=== PATIENT | male | born 1995 | race Caucasian/White ===

== ENCOUNTER 2022-11-19 21:13 | Outpatient (CLI) | payer MEDICAID, SELFPAY | END 2022-11-19 21:14 | disposition home or self-care (01) | PROVIDERS: Visit Provider Emergency Medicine Emergency Medical Services | DX: R11.2 Nausea with vomiting, unspecified (principal) | CPT/HCPCS: A0998 ==

== ENCOUNTER 2023-08-13 11:36 | Emergency (ER) | payer MEDICAID, SELFPAY ==
[2023-08-13 12:03] VITALS: BP 113/72; PULSE 74; RESP 18; TEMP 37.1; O2SAT 99; BMI 24.4
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
== END 2023-08-13 13:41 | disposition left against medical advice (07) ==
LOC: ED 13:40
PROVIDERS: Emergency Provider Emergency Medicine
DX: T50.996A Underdosing of other drugs, medicaments and biological substances, initial encounter (principal); Z53.29 Procedure and treatment not carried out because of patient's decision for other reasons
CPT/HCPCS: 99282; 99283; 99284

== ENCOUNTER 2024-05-20 19:37 | Emergency (ER) | payer MEDICAID, SELFPAY ==
[2024-05-20 19:42] VITALS: BP 116/69; PULSE 72; RESP 20; TEMP 36.7; O2SAT 99; BMI 24.4
[2024-05-20] MEDS: LIDOCAINE 1%-EPI 1:100,000 20 ML INFILTRATI (19:50)
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
[2024-05-20 20:28] VITALS: BP 118/71; PULSE 75; RESP 20; TEMP 36.7; O2SAT 99
[2024-05-20 20:29] VITALS: BP 118/71; PULSE 75; RESP 20; TEMP 36.7
== END 2024-05-20 20:30 | disposition home or self-care (01) ==
LOC: ED 20:27
PROVIDERS: Emergency Provider Emergency Medicine Emergency Medical Services; PCP Student in an Organized Health Care Education/Training Program
DX: S51.851A Open bite of right forearm, initial encounter (principal); W54.0XXA Bitten by dog, initial encounter
CPT/HCPCS: 12001; 99283; 99284

== ENCOUNTER 2024-08-04 06:30 | Emergency (ER) | payer MEDICAID, SELFPAY ==
[2024-08-04 06:53] VITALS: BP 133/87; PULSE 73; RESP 16; TEMP 37; O2SAT 97; BMI 25.8
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
[2024-08-04] MEDS: ACETAMINOPHEN 500 MG TABLET 1000 MG PO (07:41)
[2024-08-04] MEDS: IBUPROFEN 200 MG TABLET 600 MG PO (07:41)
== END 2024-08-04 07:58 | disposition home or self-care (01) ==
LOC: ED 07:36
PROVIDERS: Emergency Provider Family Medicine; PCP Student in an Organized Health Care Education/Training Program
DX: S76.111A Strain of right quadriceps muscle, fascia and tendon, initial encounter (principal); Z59.02 Unsheltered homelessness
CPT/HCPCS: 99283; A9270

== ENCOUNTER 2025-02-22 09:52 | Emergency (ER) | payer OTHER, SELFPAY ==
--- OUTSIDE RECORDS SUMMARY | 2025-02-22 09:54 | XMS_ITS | Clinical Summary ---
Author Organization [facility] Address [address] [place] [address] Care Team Providers Care Assistant Activities Director Name Role Phone No Ref-Primary, Physician Primary Care Provider Allergies Active Allergy Reactions Criticality Noted Date Comments Lactose Diarrhea 11/27/2021 Valproic Acid Other (See Comments) 01/05/2022 Hyperammonemia x 2 even with levocarnitine Medications acetaminophen (TYLENOL) 325 MG tablet Take 650 mg by mouth every 4 hours as needed 2 Active busPIRone (BUSPAR) 10 MG tablet Take 10 mg by mouth 3 times daily 2 Active DULoxetine (CYMBALTA) 60 MG capsule Take 60 mg by mouth daily 2 Active fenofibrate (TRICOR) 48 MG tablet Take 48 mg by mouth daily 2 Active melatonin 5 MG tablet Take 5 mg by mouth At Bedtime 2 Active OLANZapine (ZYPREXA) 2.5 MG tablet Take 2.5 mg by mouth as needed 2 Active traZODone (DESYREL) 50 MG tablet Take 50 mg by mouth nightly as needed 2 Active calcipotriene (DOVONOX) 0.005 % external cream Apply topically four times a week 2 Active clobetasol (TEMOVATE) 0.05 % external ointment three times a week 2 Active entecavir (BARACLUDE) 0.5 MG tablet Take 0.5 mg by mouth daily 2 Active Lacosamide (VIMPAT) 100 MG TABS tabletIndications :Jqpj-O-vkvorz-D- aspartate receptor (anti-NMDAR) encephalitis Take 1 tablet (100 mg) by mouth 2 times daily 60 tablet 5 Active Social History Tobacco Use Types Packs/Day Years Used Date Smoking Tobacco: Never Tobacco Cessation:Counseling Given: Not Answered Alcohol Use Standard Drinks/Week Comments Not Currently 0 (1 standard drink = 0.6 oz pur e alcohol) Adolescent Education Answer Date Record ed Getting School Help Needed Not on file 05/11 Sex and Gender Information Value Date Recorded Sex Assigned at Not on file Legal Sex Male 2:24 PM CDT Gender Identity Not on file Sexual Orientation Not on file Last Filed Vital Signs Vital Sign Reading Time Taken Comments Blood Pressure 142/84 12/25/2022 11:46 PM CDT Pulse 67 12/25/2022 11:46 PM CDT Temperature 35.7 C (96.3 F) 12/25/2022 8:06 PM CDT Respiratory Rate 18 12/25/2022 11:4 6 PM CDT Oxygen Saturation 100% 12/25/2022 11: 46 PM CDT Inhaled Oxygen Concentration - - Weight 95.6 kg (210 lb 12.8 oz) 07/04/2022 2:09 PM SAW MAKER Height 177.8 cm (5' 10) 07/04/2022 2:09 PM SAW MAKER Body Mass Index 30.25 07/04/2022 2:09 PM SAW MAKER Plan of Treatment Health Maintenance Due Date Last Done Comments ADVANCE CARE PLANNING 1995 ANNUAL REVIEW OF HM ORDERS 1995 COVID-19 VACCINE (#1) 2000 HEPATITIS C SCREENING 2013 PNEUMOCOCCAL VACCINE: PEDIATRICS (0 to 5 YEARS) AND AT-RISK PATIENTS (6 to 49 YEARS) (1 of 2 - PCV) 2014 ZOSTER VACCINE (1 of 2) 2014 PHQ-2 (once per calendar year) 2024 YEARLY PREVENTIVE VISIT 10/01/2024 10/01/2023 INFLUENZA VACCINE (Season Ended) 2025 06/28/2022, 05/31/2011, 05/19/2009 DTAP/TDAP/TD VACCINE (9 - Td or Tdap) 06/28/2032 06/28/2022, 05/19/2009, 05/19/2009, Additional history exists HEPATITIS B VACCINE Completed 03/03/1996, 1995, 1995 HIV SCREENING Completed 12/18/2021 HPV VACCINE Aged Out No longer eligi ble based on patient's age to complete this topic MENINGITIS VACCINE Aged Out No longer eligible based on patient's age to complete this topic Insurance [facility] [employer] Care Teams Assistant Activities Director Relationship Specialty Start Date End Date No Ref-Primary, Physician PCP - General 12/25/22
--- OUTSIDE RECORDS SUMMARY | 2025-02-22 09:55 | XMS_ITS | Clinical Summary ---
Author Organization [facility] Address [address] [place] [address] Care Team Providers Care Field Property Loss Specialist Name Role Phone Pcp, No Primary Care Provider Sofia Jean RN Unavailable Allergies Active Allergy Reactions Criticality Noted Date Comments Lactose Diarrhea Unknown 11/27/2021 Valproic Acid Other - Describe In Comment Field Unknown 01/05/2022 Hyperammonemia x 2 even with levocarnitine Medications clobetasol 0.05% (TEMOVATE 0.05% OINTMENT) 0.05 % ointmentIndications: Psoriasis apply a thin layer to the affected areas on arms, legs, trunk twice a day ON WEEKENDS (Saturday, Saturday, and Saturday) 120 g 5 12/23/19 22 Active acetaminophen (TYLENOL) 325 mg tablet Take 650 mg by mouth. 06/04/20 22 Active entecavir (BARACLUDE) 0.5 mg tablet Take 1 Tablet by mouth once daily. 06/11/20 22 Active fenofibrate nanocrystallized (TRICOR) 48 mg tablet 48 mg once daily with a meal. 07/10/20 22 Active triamcinolone (ARISTOCORT; KENALOG) 0.1 % creamIndications:Pso riasis Apply topically to affected area(s) two times daily. 454 g 3 04/12/20 23 Active OLANzapine (ZyPREXA) 2.5 mg tabletIndications:Ge neralized anxiety disorder Take 1-2 Tablets (2.5-5 mg) by mouth 2 times daily if needed for Agitation (anxiety). 60 Tablet 10/17/19 24 Active gabapentin (NEURONTIN) 100 mg capsuleIndications:G eneralized anxiety disorder Take one-three tablets (100-300mg) three times daily ORAL as needed for anxiety 60 Capsule 1 10/17/19 24 Active mirtazapine (REMERON) 15 mg tabletIndications:Ge neralized anxiety disorder TAKE 1 TABLET(15 MG) BY MOUTH AT BEDTIME 30 Tablet 11/25/19 24 Active clobetasol (TEMOVATE) 0.05 % creamIndications:Pso riasis APPLY TO AFFECTED AREA(S) TWICE A DAY 120 g 04/27/20 24 Active triamcinolone (ARISTOCORT; KENALOG) 0.1 % creamIndications:Pso riasis Apply a thin layer twice daily as needed to the arms, legs and body, for up to 21 days. Take 2 weeks off prior to restarting. 454 g 3 06/19/20 24 Active clobetasol (TEMOVATE) 0.05 % creamIndications:Pso riasis Apply a thin layer twice daily as needed to the scalp, for up to 21 days. Take 2 weeks off prior to restarting. 60 g 3 06/19/20 24 Active apremilast (OTEZLA) 10 mg (4)-20 mg (4)-30 mg (47) DsPk starter packIndications:Psor iasis Take 1 Tablet by mouth two times daily. 55 Tablet 06/24/20 24 Active clobetasol (TEMOVATE) 0.05 % ointmentIndications: Psoriasis Can use twice daily for up to 2 weeks straight on areas of active rash. Take 1 week off prior to restarting. 60 g 3 09/22/19 25 Active Otezla 30 mg tab tabletIndications:Ps oriasis TAKE 1 TABLET BY MOUTH TWO TIMES DAILY. DO NOT CRUSH OR CHEW. 60 Tablet 5 11/05/19 25 Active lacosamide 150 mg tabletIndications:Se izure (HC) Take 1 Tablet (150 mg) by mouth two times daily. 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 Is followed by neurology attendant arcade at [facility]. Seizure 12/19/2021 Overview (09/13/2022): Last Assessment & Plan: Stable, denies seizure activities since discharge from hospital. BRBPR (bright red blood per rectum) 12/08/2021 Polysubstance abuse 05/21/2021 Overview (05/21/2021): Currently using marijuana; previous use of most drugs and alcohol; has been sober from alcohol since [id number]; completed court-ordered CD treatment 6-7 x Social anxiety disorder 05/21/2021 Severe major depression 02/23/2021 Generalized anxiety disorder 02/23/2021 Psoriasis 11/27/2016 Psoriasis of scalp 06/10/2014 Dysthymia 11/05/2012 Marijuana use 06/02/2012 Attention deficit disorder without mention of hy peractivity 01/02/2012 Unspecified adjustment reaction 06/04/2011 Overview (06/04/2011): Rule out ADHD/behavior/mood problem vs. Adjustment concerns Encounters Date Type Department Care Team Description 01/27/2025 Patient Outreach [facility] [address] [address] Sofia Rolon, RN [facility] Care Coordination- Medica ([place] Renewal ) from Last 3 Months Immunizations Immunization Administration Dates Next Due AMB Influenza, IIV3 (Age >=3 years)(Flu Clinic Only) 05/31/2011 DTP 03/03/1996,1995,1995 DTaP 05/19/2009, 1,03/03/1996,1995,1995,1995 DTaP-HIB (TriHIBIT) 11/30/1997 HIB HbOC (HibTITER) 03/03/1998, 8,06/29/1996,1995 Hepatitis B (Peds) 03/03/1996,1995, 995 Hib Conjugate, Unspecified 03/03/1998,11/30/1997 Inactivated Polio Vaccine 05/26/2001,,1995,1995 Influenza, IIV3 (Age >=3 years) 05/19/2009 Influenza, IIV4 06/28/2022 MMR 12/31/2007,10/07/1996 Td, Preservative Free (age > = 7 Years) 06/28/2022 Tdap 05/19/2009 Varicella Vaccine 12/31/2007,10/06/1996 Family History Medical History Relation Name Comments Good Health Father Diabetes Maternal Aunt Hypertension Mother Relation Name Status Comments Brother Alive Father Alive Maternal Aunt Alive Mother Alive Sister 1 Alive Sister 2 Alive Social History Tobacco Use Types Packs/Day Years Used Date Smoking Tobacco: Never Smokeless Tobacco: Never Tobacco Cessation:Counseling Given: Yes Alcohol Use Standard Drinks/Week Comments No 0 (1 standard drink = 0.6 oz pur e alcohol) PHQ-2 Answer Date Recorded PHQ-2 TOTAL SCORE 4 10/17/2023 Social Connections Answer Date Recorded Do you often feel lonely or isolated from those around you? 4 10/01/2023 Financial Resource Strain Answer Date R ecorded Difficulty of Paying Living Expenses 2 10/01/2023 Difficulty of Paying Living Expenses 1 10/01/2023 Food Insecurity Answer Date Recorded Do you worry your food will run out before you are able to buy more? 1 10/01/2023 Transportation Needs Answer Date Record ed Does lack of transportation keep you from medica l appointments? 2 10/01/2023 Does lack of transportation keep you from work, meetings or getting things that you need? 1 10/01/2023 Housing Stability Answer Date Recorded What is your housing situation today? 3 10/01/2023 Utilities Answer Date Recorded Do you have trouble paying f or utilities (for example, heat, electricity, water, phone)? 2 10/01/2023 Sex and Gender Information Value Date Recorded Sex Assigned at Male 06/19/2024 7:45 AM CDT Legal Sex Male 5:42 AM RISK DEVELOPER Gender Identity Not on file Sexual Orientation Not on file Obstetrics History Last Filed Vital Signs Vital Sign Reading Time Taken Comments Blood Pressure 129/59 07/28/2024 1:20 PM RISK DEVELOPER Pulse 64 07/28/2024 1:20 PM RISK DEVELOPER Temperature 36.7 C (98 F) 02/23/2021 3:26 PM CDT Respiratory Rate 16 01/12/2016 6:00 AM CDT Oxygen Saturation 97% 05/08/2024 8:04 AM CDT Inhaled Oxygen Concentration - - Weight 77.6 kg (171 lb) 06/09/2024 3:51 PM CDT Height 175.9 cm (5' 9.25) 06/09/2024 3:51 PM CD T Body Mass Index 25.07 06/09/2024 3:51 PM CDT Plan of Treatment Upcoming Encounters Date Type Department Care Team (Late st Contact Info) Description 04/02/2025 1:00 PM CDT Office Visit [facility] [address] [place] [address] Naomy Meyers PA [address] [place] [address] Health Maintenance Due Date Last Done Comments COVID-19 vaccine series (#1) 2000 HIV for age 15-65 2010 Hepatitis C screening for age 18-79 2013 BMI (ht and wt on same day) for age 18+ 10/16/2024 10/17/2023, 10/01/2023, 11/23/2021, Additional history exists Depression screening for age 12+ 10/16/2024 10/17/2023, 10/17/2023, 10/01/2023, Additional history exists Influenza Vaccine (#1) 2025 , 05/31/2011, 05/19/2009 Tetanus booster 06/28/2032 06/28/2022, 05/19/2009 Hepatitis B series for 19+ Completed 03/03, 1995, 1995 Pneumococcal series for age 6-49 Aged Out No longer eligible based on patient's age to complete this topic Goals Goal Patient Goal Type Associated Problems Recent Progress Patient-Stated? Author [facility] CC - Care Team General No Du Rolon, RN Note: Interdisciplinary Care Team (ICT) Communication Moses will be supported in health and wellness goals as evidenced by interdisciplinary care team (ICT) collaboration and consultation. Goal Creation Date: 11/02/2024 Goal End Date: 09/15/2025 ICT Members: Member ICT Actions at HRA: Transfer HRA completed 11/02/2024 Sofia Rolon RN..........11/02/2024 2:25 PM Notes on Progress Towards Goal: Contact Type Date Recent ICT Actions Biannual Support Plan Review Year-End Summary [facility] - Health Promotion General No Sofia Rolon RN Note: Health Maintenance Tracking Grid Moses will engage in management of preventive needs to improve health & wellness. Health Screening Dates of Last Completion & Other Notes Annual Preventive Check-Up Due Mammogram N/A Colorectal Cancer Screening N/A Fall Risk No recent falls Flu Vaccine 06/28/2022 Tetanus Booster (Every 10 Years) 06/28/2022 COVID-19 Vaccine N/A Hearing Exam due Vision Exam due Dental Exam due Aspirin Use N/A Cholesterol Check due Routine Diabetes: Not diabetic Kidney Function Check Dilated Eye Exam A1C Check (Value) Blood Pressure Check 07/28/2024 129/59 Other (Bone Density, Preventive Vaccines, etc.) N/A [facility] - [place] Cho[facility] Goals General Yes Sofia Rolon RN Note: Goal Title: [facility] CC - [place] Goals Goals Creation Date: 09/16/2024 Goals End Date: 09/15/2025 Moses's [place] goal statements (SMART): I will schedule and complete an exam with my primary care doctor in the next year. I will complete all recommended immunizations, screenings, and vaccinations per my primary doctor in the next year. I will continue to meet with my psychologist as recommended for the next six months. I will schedule and complete recommended dental and vision exams in the next year. Actions my Special Equipment Technician (CC) will take to support me in achieving these goals: CC will monitor goal progress at biannual Support Plan review and record updates in [facility]. Sofia Rolon RN..........11/02/2024 2:[address] [place] [address] [facility] [id number] [address] [place] [address] Care Teams Field Property Loss Specialist Relationship Specialty Start Date End Date Pcp, No . PCP - General 11/18/14 Sofia Rolon, RN [address] [place], [place] [id number] [facility] Care Coordination Registered Nurse 10/17/24
[2025-02-22 10:11] VITALS: BP 110/56; PULSE 61; RESP 16; TEMP 36.6; O2SAT 97; BMI 23.1
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
--- OUTSIDE RECORDS SUMMARY | 2025-02-22 10:54 | XMS_ITS | CCD ---
Author Organization Unknown Care Team Providers Care Chief Of Staff Doctor Name Role Phone Lead Refiner, [place] Primary Care Provider Unava ilable Unavailable Chronic Care Management Unavaila ble Summary Purpose DataExchange Insurance Providers Payer name Policy type / Coverage type Covered libertarian ID Effective Begin Date Effective End Date [facility] Commercial Insurance [id number] Unknown Unkn own Family History Family History data not found Medication Administered No Medication Administered data Reason For Visit No Reason For Visit data
--- OUTSIDE RECORDS SUMMARY | 2025-02-22 11:55 | XMS_ITS | CCD ---
Author Organization Unknown Care Team Providers Care It Service Delivery Manager Name Role Phone Facility Operations Manager, [place] Primary Care Provider Unava ilable Unavailable Chronic Care Management Unavaila ble Summary Purpose DataExchange Insurance Providers Payer name Policy type / Coverage type Covered alliance party ID Effective Begin Date Effective End Date [facility] Commercial Insurance [id number] Unknown Unkn own Family History Family History data not found Medication Administered No Medication Administered data Reason For Visit No Reason For Visit data
--- OUTSIDE RECORDS SUMMARY | 2025-02-22 11:55 | XMS_ITS | CCD ---
Author Organization Unknown Care Team Providers Care Poker Supervisor Name Role Phone Patrol Judge, [place] Primary Care Provider Unava ilable Unavailable Chronic Care Management Unavaila ble Summary Purpose DataExchange Insurance Providers Payer name Policy type / Coverage type Covered constitution party ID Effective Begin Date Effective End Date [facility] Commercial Insurance [id number] Unknown Unkn own Family History Family History data not found Medication Administered No Medication Administered data Reason For Visit No Reason For Visit data
[2025-02-22] MEDS: HYDROCODONE-ACETAMIN 5-325 MG 1 TAB 2 TAB PO (11:58)
[2025-02-22 12:06] VITALS: BP 108/70; PULSE 52; RESP 16; TEMP 36.6; O2SAT 97
== END 2025-02-22 12:15 | disposition other institution (70) ==
PROVIDERS: Emergency Provider Family Medicine; PCP Student in an Organized Health Care Education/Training Program
DX: H50.682 Extraocular muscle entrapment, unspecified, left eye (principal); S02.32XA Fracture of orbital floor, left side, initial encounter for closed fracture; F32.A Depression, unspecified; F41.8 Other specified anxiety disorders; G40.909 Epilepsy, unspecified, not intractable, without status epilepticus; Y04.2XXA Assault by strike against or bumped into by another person, initial encounter
CPT/HCPCS: 70450; 70486; 99284; 99285; A9270

== ENCOUNTER 2025-02-27 13:37 | Emergency (ER) | payer MEDICARE, OTHER, SELFPAY ==
--- OUTSIDE RECORDS SUMMARY | 2024-04-23 05:19 | XMS_ITS | Continuity of Care Document ---
Author Organization [facility] Address [address] [address] [place] [address] Phone Care Team Providers Care Game Designer/Creative Director Name Role Phone Donato Santizo MD Unavailable Unavailabl e Advance Directives Directive Yes / No Effective Date File Name No Information Encounters Encounter Description Practice Location Reason(s) For Visit Diagnoses Date Provider Providers Copied on Encounter [facility], [address] [address], [place], [place], [id number], tel:[phone] [facility] No Information Seng Sewell. [address], [id number], [place]. tel:[phone] [facility] [employer] [place], [address] [address], [place], [place], [address], tel:[phone] [facility] No Information Seng Sewell. [address], [id number], [place]. tel:[phone] Family History Family Member Type Diagnosis Age [...] tetanus toxoids and pertussis vaccine administered Note: [facility] bi-direct ional interface ; Source: Other Registry [employer] [facility] administered Note: [facility] bi-directional interface ; Source: Other Registry Payers Payer name Insurance type Covered green party ID Authoriza tion(s) No Information Social [...]
--- OUTSIDE RECORDS SUMMARY | 2024-04-23 05:19 | XMS_ITS | Continuity of Care Document ---
Author Organization [facility] Address [address] [address] [place] [address] Phone Care Team Providers Care Events Director Name Role Phone Donato Santizo MD Unavailable Unavailabl e Advance Directives Directive Yes / No Effective Date File Name No Information Encounters Encounter Description Practice Location Reason(s) For Visit Diagnoses Date Provider Providers Copied on Encounter [facility], [address] [address], [place], [place], [id number], tel:[phone] [facility] No Information Seng Sewell. [address], [id number], [place]. tel:[phone] [facility] [place], [address] [address], [place], [place], [address], tel:[phone] [facility] No Information Seng Sewell. [address], [id number], [place]. tel:[phone] Family History Family Member Type Diagnosis Age [...] tetanus toxoids and pertussis vaccine administered Note: [facility] bi-direct ional interface ; Source: Other Registry [employer] [facility] administered Note: [facility] bi-directional interface ; Source: Other Registry Payers Payer name Insurance type Covered alliance party ID Authoriza tion(s) No Information Social [...]
--- OUTSIDE RECORDS SUMMARY | 2025-02-27 13:40 | XMS_ITS | Clinical Summary ---
Author Organization [place] Address [address] [place] [id number] Care Team Providers Care Fringe Knotter Name Role Phone No Ref-Primary, Physician Primary [...] Active Lacosamide (VIMPAT) 100 MG TABS tabletIndications :Uopp-W-ciaomp-D- aspartate receptor (anti-NMDAR) encephalitis Take 1 tablet [...] (210 lb 12.8 oz) 07/04/2022 2:09 PM CEMETERY WARDEN Height 177.8 cm (5' 10) 07/04/2022 2:09 PM CEMETERY WARDEN Body Mass Index 30.25 07/04/2022 2:09 PM CEMETERY WARDEN Plan of Treatment Health Maintenance Due Date [...] patient's age to complete this topic Insurance [facility] [employer] Care Teams Fringe Knotter Relationship Specialty Start Date End Date No Ref-Primary, Physician PCP - General 12/25/22
--- OUTSIDE RECORDS SUMMARY | 2025-02-27 13:40 | XMS_ITS | Clinical Summary ---
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 Is followed by neurology transformer inspector at [facility]. Seizure 12/19/2021 Overview (09/13/2022): Last Assessment & Plan: Stable, denies seizure activities since discharge from hospital. BRBPR (bright red blood per rectum) 12/08/2021 Polysubstance abuse 05/21/2021 Overview (05/21/2021): Currently using marijuana; previous use of most drugs and alcohol; has been sober from alcohol since [id number]; completed court-ordered CD treatment 6-7 x Social anxiety disorder 05/21/2021 Severe major depression 02/23/2021 Generalized anxiety disorder 02/23/2021 Psoriasis 11/27/2016 Psoriasis of scalp 06/10/2014 Dysthymia 11/05/2012 Marijuana use 06/02/2012 Attention deficit disorder without mention of hy peractivity 01/02/2012 Unspecified adjustment reaction 06/04/2011 Overview (06/04/2011): Rule out ADHD/behavior/mood problem vs. Adjustment concerns Encounters Date Type Department Care Team Description 02/25/2025 Patient Outreach [facility] [address] [place] [id number] Adonay Kirkpatrick [facility] ( [facility] - [facility]) 02/23/2025 Patient Outreach [facility] [address] [place] [address] Adonay Kirkpatrick [facility] ( Transition - ED) 02/22/[address] [facility] Scanner 1 scan: (1-Ord) [place], [place] WO CON, 02/22/2025 02/22/[address] [facility] Scanner 1 scan: (1-Ord) [place], FACIAL BONES WO CON, 02/22/2025 01/27/2025 Patient Outreach [facility] [address] [place] [address] Sofia Rolon RN [facility] ([place] Renewal [...] AM CDT Legal Sex Male 5:42 AM LEAD PROGRAMMER ANALYST Gender Identity Not on file Sexual Orientation Not on file Obstetrics History Last Filed Vital Signs Vital Sign Reading Time Taken Comments Blood Pressure 129/59 07/28/2024 1:20 PM LEAD PROGRAMMER ANALYST Pulse 64 07/28/2024 1:20 PM LEAD PROGRAMMER ANALYST Temperature 36.7 C (98 F) 02/23/2021 3:26 [...] Description 04/02/2025 1:00 PM CDT Office Visit [facility] [address] [place] [address] Naomy Meyers PA [address] [place] [address] Health Maintenance Due Date Last Done Comments [...] CC - Care Team General No Du Rolon RN Note: Interdisciplinary Care Team (ICT) Communication [...] exams in the next year. Actions my Pediatric Genetic Counselor (CC) will take to support me in achieving these goals: CC will monitor goal progress at biannual Support Plan review and record updates in [place]. Sofia Rolon RN..........11/02/2024 2:29 PM Procedures Procedure Name Priority Date/Time Associated Diagnosis Comments SCAN-CT INTERPRETATION 02/22/2025 12:00 AM CDT SCAN-CT INTERPRETATION 02/22/2025 12:00 AM CDT from Last 3 Months Results * SCAN-CT INTERPRETATION (02/22/2025 12:00 AM CDT) Only the most recent of2 resultswithin the time period is included. Anatomical Region Laterality Modality Other us Scanner OTHER Final Result from Last 3 Months Insurance [facility] Care Teams Superintendent Distribution Relationship Specialty Start Date End Date Pcp, No . PCP - General 11/18/14 Sofia Rolon, RN [address], [place] [id number] [facility] Registered Nurse 10/17/24
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
[2025-02-27 13:46] VITALS: BP 146/84; PULSE 64; RESP 16; TEMP 36.6; O2SAT 98; BMI 25.2
[2025-02-27] MEDS: OxyCODONE/APAP 5-325 TABLET 1 TAB PO (14:17)
--- OUTSIDE RECORDS SUMMARY | 2025-02-27 14:40 | XMS_ITS | CCD ---
Author Organization Unknown Care Team Providers Care Ecommerce Manager Name Role Phone Test Facility Engineer, [place] Primary Care Provider Unava ilable Unavailable Chronic Care Management Unavaila ble Summary Purpose DataExchange Insurance Providers Payer name Policy type / Coverage type Covered democrat ID Effective Begin Date Effective End Date [facility] Commercial Insurance [id number] Unknown Unkn own Family History Family History data not found Medication Administered No Medication Administered data Reason For Visit No Reason For Visit data
--- OUTSIDE RECORDS SUMMARY | 2025-02-27 14:40 | XMS_ITS | CCD ---
Author Organization Unknown Care Team Providers Care Grain Unloader Name Role Phone Retreader, [place] Primary Care Provider Unava ilable Unavailable Chronic Care Management Unavaila ble Summary Purpose DataExchange Insurance Providers Payer name Policy type / Coverage type Covered libertarian ID Effective Begin Date Effective End Date [facility] Commercial Insurance [id number] Unknown Unkn own Family History Family History data not found Medication Administered No Medication Administered data Reason For Visit No Reason For Visit data
--- OUTSIDE RECORDS SUMMARY | 2025-02-27 15:20 | XMS_ITS | CCD ---
Author Organization Unknown Care Team Providers Care Diamond Wheel Molder Name Role Phone General Store Manager, [place] Primary Care Provider Unava ilable Unavailable Chronic Care Management Unavaila ble Summary Purpose DataExchange Insurance Providers Payer name Policy type / Coverage type Covered green party ID Effective Begin Date Effective End Date [facility] Commercial Insurance [id number] Unknown Unkn own Family History Family History data not found Medication Administered No Medication Administered data Reason For Visit No Reason For Visit data
--- OUTSIDE RECORDS SUMMARY | 2025-02-27 15:20 | XMS_ITS | CCD ---
Author Organization Unknown Care Team Providers Care Smoke Control Supervisor Name Role Phone Sampling Expert, [place] Primary Care Provider Unava ilable Unavailable Chronic Care Management Unavaila ble Summary Purpose DataExchange Insurance Providers Payer name Policy type / Coverage type Covered libertarian ID Effective Begin Date Effective End Date [facility] Commercial Insurance [id number] Unknown Unkn own Family History Family History data not found Medication Administered No Medication Administered data Reason For Visit No Reason For Visit data
== END 2025-02-27 14:26 | disposition home or self-care (01) ==
LOC: ED 14:18
PROVIDERS: Emergency Provider Emergency Medicine; PCP Student in an Organized Health Care Education/Training Program
DX: G89.18 Other acute postprocedural pain (principal)
CPT/HCPCS: 99282; 99283; A9270

== ENCOUNTER 2025-02-28 16:58 | Emergency (ER) | payer MEDICARE, OTHER, SELFPAY ==
--- OUTSIDE RECORDS SUMMARY | 2024-04-23 05:19 | XMS_ITS | Continuity of Care Document ---
Author Organization [facility] Address [address] [address] [place] [address] Phone Care Team Providers Care Lacing Presser Name Role Phone Donato Santizo MD Unavailable Unavailabl e Advance Directives Directive Yes / No Effective Date File Name No Information Encounters Encounter Description Practice Location Reason(s) For Visit Diagnoses Date Provider Providers Copied on Encounter [facility], [address] [address], [place], [place], [id number], tel:[phone] [facility] No Information Seng Sewell. [address], [id number], [place]. tel:[phone] [facility] [employer] [place], [address] [address], [place], [place], [address], tel:[phone] [facility] No Information Seng Sewell. [address], [id number], [place]. tel:[phone] Family History Family Member Type Diagnosis Age At Onset No Information Immunizations Vaccine Date Status Comments tetanus and diphtheria toxoi ds, adsorbed, preservative free, for adult use (5 Lf of tetanus toxoid and 2 Lf of diphtheria toxoid) administered Note: [facility] bi-direct ional interface ; Source: Other Registry Afluria Qd administered Note: [facility] bi-directional interface ; Source: Other Registry Influenza, seasonal, injecta ble, preservative free administered Note: [facility] bi-direct ional interface ; Source: Other Registry tetanus toxoid, reduced diphtheria toxoid, and acellular pertussis vaccine, adsorbed administered Note: [facility] b i-directional interface ; Source: Other Registry Influenza, seasonal, injectable administe red Note: [facility] bi- directional interface ; Source: Other Registry varicella virus vaccine administered Note : [facility] bi-directional interface ; Source: Other Registry measles, mumps and rubella v irus vaccine administered Note: [facility] bi-direct ional interface ; Source: Other Registry poliovirus vaccine, inactivated administe red Note: [facility] bi- directional interface ; Source: Other Registry diphtheria, tetanus toxoids and acellular pertussis vaccine administered Note: [facility] b i-directional interface ; Source: Other Registry DTaP-Haemophilus influenzae type b conjugate vaccine administered Note: [facility] bi-direct ional interface ; Source: Other Registry varicella virus vaccine administered Note : [facility] bi-directional interface ; Source: Other Registry measles, mumps and rubella v irus vaccine administered Note: [facility] bi-direct ional interface ; Source: Other Registry Haemophilus influenzae type b vaccine, conjugate unspecified formulation administered Note: [facility] bi-direct ional interface ; Source: Other Registry [employer] [facility] administered Note: [facility] bi-directional interface ; Source: Other Registry Haemophilus influenzae type b vaccine, conjugate unspecified formulation administered Note: [facility] bi-direct ional interface ; Source: Other Registry diphtheria, tetanus toxoids and pertussis vaccine administered Note: [facility] bi-direct ional interface ; Source: Other Registry Haemophilus influenzae type b vaccine, conjugate unspecified formulation administered Note: [facility] bi-direct ional interface ; Source: Other Registry diphtheria, tetanus toxoids and pertussis vaccine administered Note: [facility] bi-direct ional interface ; Source: Other Registry [employer] [facility] administered Note: [facility] bi-directional interface ; Source: Other Registry Haemophilus influenzae type b vaccine, conjugate unspecified formulation administered Note: [facility] bi-direct ional interface ; Source: Other Registry diphtheria, tetanus toxoids and pertussis vaccine administered Note: [facility] bi-direct ional interface ; Source: Other Registry [employer] [facility] administered Note: [facility] bi-directional interface ; Source: Other Registry Payers Payer name Insurance type Covered constitution party ID Authoriza tion(s) No Information Social History Type Description Quantity Date Captured Comments Sex Male Smoking Status No Information Chief Complaint And Reason For Visit No Information Reason For Referral Reason For Referral No Information History Of Present Illness Encounter Date Complaint History Of Prese nt Illness No Information Functional Status Date Functional Assessmen t No Information Instructions Date Instruction Additional Infor mation No Information Assessments Type Assessment Date No Information Patient Care Teams Name Effective Dates (start - stop) Status Members No Information
--- OUTSIDE RECORDS SUMMARY | 2024-04-23 05:19 | XMS_ITS | Continuity of Care Document ---
Author Organization [facility] Address [address] [address] [place] [address] Phone Care Team Providers Care Predatory Game Hunter Name Role Phone Donato Santizo MD Unavailable Unavailabl e Advance Directives Directive Yes / No Effective Date File Name No Information Encounters Encounter Description Practice Location Reason(s) For Visit Diagnoses Date Provider Providers Copied on Encounter [facility], [address] [address], [place], [place], [address], tel:[phone] [facility] No Information Seng Sewell. [address], [id number], [place]. tel:[phone] [facility] [employer] [place], [address] [address], [place], [place], [id number], tel:[phone] [facility] No Information Seng Sewell. [address], [id number], [place]. tel:[phone] Family History Family Member Type Diagnosis Age [...] tetanus toxoids and pertussis vaccine administered Note: [facility] bi-direct ional interface ; Source: Other Registry [employer] [facility] administered Note: [facility] bi-directional interface ; Source: Other Registry Payers Payer name Insurance type Covered republican ID Authoriza tion(s) No Information Social History [...]
--- OUTSIDE RECORDS SUMMARY | 2025-02-28 17:00 | XMS_ITS | Clinical Summary ---
Author Organization [place] Address [address] [place] [id number] Care Team Providers Care Tree Chipper Name Role Phone No Ref-Primary, Physician Primary [...] Active Lacosamide (VIMPAT) 100 MG TABS tabletIndications :Jmiq-L-tmljsg-D- aspartate receptor (anti-NMDAR) encephalitis Take 1 tablet [...] (210 lb 12.8 oz) 07/04/2022 2:09 PM DRUG DEPARTMENT WORKER Height 177.8 cm (5' 10) 07/04/2022 2:09 PM DRUG DEPARTMENT WORKER Body Mass Index 30.25 07/04/2022 2:09 PM DRUG DEPARTMENT WORKER Plan of Treatment Health Maintenance Due Date [...] patient's age to complete this topic Insurance [facility] [employer] Care Teams Tree Chipper Relationship Specialty Start Date End Date No Ref-Primary, Physician PCP - General 12/25/22
--- OUTSIDE RECORDS SUMMARY | 2025-02-28 17:01 | XMS_ITS | Clinical Summary ---
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 Is followed by neurology macadam raker at [facility]. Seizure 12/19/2021 Overview (09/13/2022): Last Assessment & Plan: Stable, denies seizure activities since discharge from hospital. BRBPR (bright red blood per rectum) 12/08/2021 Polysubstance abuse 05/21/2021 Overview (05/21/2021): Currently using marijuana; previous use of most drugs and alcohol; has been sober from alcohol since [id number]; completed court-ordered CD treatment 6-7 x Social [...] Description 02/25/2025 Patient Outreach [facility] [address] [place] [address] Adonay Kirkpatrick [facility] - [facility]) 02/23/2025 Patient Outreach [facility] [address] [place] [address] Adonay Kirkpatrick [facility] ( Transition - ED) 02/22/2025 Orders Only [facility] Scanner 1 scan: (1-Ord) [place], [place] WO CON, 02/22/2025 02/22/2025 Orders Only [facility] Scanner 1 scan: (1-Ord) [place] WO CON, 02/22/2025 01/27/2025 Patient Outreach [facility] [address] [place] [address] Sofia Rolon RN [facility] [...] AM CDT Legal Sex Male 5:42 AM SUPERVISOR PIPELINE MAINTENANCE Gender Identity Not on file Sexual Orientation Not on file Obstetrics History Last Filed Vital Signs Vital Sign Reading Time Taken Comments Blood Pressure 129/59 07/28/2024 1:20 PM SUPERVISOR PIPELINE MAINTENANCE Pulse 64 07/28/2024 1:20 PM SUPERVISOR PIPELINE MAINTENANCE Temperature 36.7 C (98 F) 02/23/2021 3:26 [...] Description 04/02/2025 1:00 PM CDT Office Visit [facility] [address] [place] [address] Naomy Meyers PA [address] [place] [address] Health Maintenance Due Date Last Done Comments [...] exams in the next year. Actions my Clinical Informatics Physician (CC) will take to support me in [...] Final Result from Last 3 Months Insurance [facility] Care Teams Decating Machine Operator Relationship Specialty Start Date End Date Pcp, No . PCP - General 11/18/14 Sofia Rolon, RN [address] [place], [place] [phone] [facility] Registered Nurse 10/17/24
--- OUTSIDE RECORDS SUMMARY | 2025-02-28 18:00 | XMS_ITS | CCD ---
Author Organization Unknown Care Team Providers Care Fortune Teller Name Role Phone Maritime Guard, [place] Primary Care Provider Unava ilable Unavailable Chronic Care Management Unavaila ble Summary Purpose DataExchange Insurance Providers Payer name Policy type / Coverage type Covered green party ID Effective Begin Date Effective End Date [facility] Commercial Insurance [id number] Unknown Unkn own Family History Family History data not found Medication Administered No Medication Administered data Reason For Visit No Reason For Visit data
--- OUTSIDE RECORDS SUMMARY | 2025-02-28 18:01 | XMS_ITS | CCD ---
Author Organization Unknown Care Team Providers Care Welding Machine Feeder Name Role Phone Medical Insurance Verifier, [place] Primary Care Provider Unava ilable Unavailable Chronic Care Management Unavaila ble Summary Purpose DataExchange Insurance Providers Payer name Policy type / Coverage type Covered libertarian ID Effective Begin Date Effective End Date [facility] Commercial Insurance [id number] Unknown Unkn own Family History Family History data not found Medication Administered No Medication Administered data Reason For Visit No Reason For Visit data
--- OUTSIDE RECORDS SUMMARY | 2025-02-28 19:09 | XMS_ITS | CCD ---
Author Organization Unknown Care Team Providers Care Real Estate Associate Name Role Phone Forms Analysis Manager, [place] Primary Care Provider Unava ilable Unavailable Chronic Care Management Unavaila ble Summary Purpose DataExchange Insurance Providers Payer name Policy type / Coverage type Covered green party ID Effective Begin Date Effective End Date [facility] Commercial Insurance [id number] Unknown Unkn own Family History Family History data not found Medication Administered No Medication Administered data Reason For Visit No Reason For Visit data
--- OUTSIDE RECORDS SUMMARY | 2025-02-28 19:09 | XMS_ITS | CCD ---
Author Organization Unknown Care Team Providers Care Punch Operator Name Role Phone Pharmacy Informatics Manager, [place] Primary Care Provider Unava ilable Unavailable Chronic Care Management Unavaila ble Summary Purpose DataExchange Insurance Providers Payer name Policy type / Coverage type Covered alliance party ID Effective Begin Date Effective End Date [facility] Commercial Insurance [id number] Unknown Unkn own Family History Family History data not found Medication Administered No Medication Administered data Reason For Visit No Reason For Visit data
== END 2025-02-28 18:09 | disposition left against medical advice (07) ==
LOC: ED 18:07
PROVIDERS: PCP Student in an Organized Health Care Education/Training Program
DX: Z53.21 Procedure and treatment not carried out due to patient leaving prior to being seen by health care provider (principal)

== ENCOUNTER 2025-03-02 15:12 | Outpatient (CLI) | payer MEDICARE, OTHER, SELFPAY | END 2025-03-02 15:13 | disposition home or self-care (01) | PROVIDERS: PCP Student in an Organized Health Care Education/Training Program; Visit Provider Family Medicine | DX: H57.12 Ocular pain, left eye (principal); R45.851 Suicidal ideations | CPT/HCPCS: A0425; A0429 ==